=== PATIENT | male | born 1980 | race Caucasian/White ===

== ENCOUNTER 2023-03-04 14:38 | Emergency (ER) | payer MEDICAID ==
[~2023-03-04] VITALS: Ht 172.7 cm; Wt 100.0 kg
[~2023-03-04 14:38] MED LIST: CLARITIN
[2023-03-04 14:51] VITALS: BP 127/85; PULSE 81; RESP 18; TEMP 98.3; O2SAT 97
[2023-03-04] MEDS ORDERED: LORA10TA64 MT (16:51)
[2023-03-04] MEDS ORDERED: MED4 MT (16:51)
[2023-03-04] MEDS ORDERED: CALA177S9 TP (16:51)
== END 2023-03-04 17:17 | disposition home or self-care (01) ==
LOC: ER 14:38
DX: L25.9 Unspecified contact dermatitis, unspecified cause (principal); Z88.5 Allergy status to narcotic agent; Z88.6 Allergy status to analgesic agent
CPT/HCPCS: 99283